=== PATIENT | female | born 1975 | race Caucasian/White ===

== ENCOUNTER → 2018-06-03 | Outpatient (CLI) | payer OTHER ==
--- NOTE | 2018-06-04 09:41 | MM ---
Reason for exam: screening (asymptomatic). History: Took hormonal contraceptives for 1 month beginning at age 24. Physical Findings: Nurse did not find any significant physical abnormalities on exam. MG 3D Screening Mammo W/Cad Bilateral CC and MLO view(s) were taken. The breast tissue is heterogeneously dense. This may lower the sensitivity of mammography. No suspicious abnormality. These results were verbally communicated with the patient and result sheet given to the patient on 06/03/18. ASSESSMENT: Negative, BI-RAD 1 RECOMMENDATION: Routine screening mammogram of both breasts in 1 year.
== END | disposition home or self-care (01) ==
LOC: RADMAMWWP 15:26
PROVIDERS: ATTEND Obstetrics & Gynecology
DX: Z12.31 Encounter for screening mammogram for malignant neoplasm of breast (principal)
CPT/HCPCS: 77063; 77067

== ENCOUNTER → 2018-12-04 | Outpatient (CLI) | payer OTHER ==
--- NOTE | 2018-12-04 09:07 | CT ---
EXAMINATION TYPE: CT angio chest DATE OF EXAM: 12/04/2018 COMPARISON: CT angiogram chest dated 05/27/2014 HISTORY: Bicuspid valve, abn ECHO. Thoracic aortic aneurysm. CT DLP: 639 mGycm. Automated Exposure Control for Dose Reduction was Utilized. CONTRAST: CTA scan of the thorax is performed without and with IV Contrast, patient injected with 100 mL of Iso lisa 370, pulmonary embolism protocol. MIP Images are created on CT scanner and reviewed. FINDINGS: LUNGS: The lungs are grossly clear without focal consolidation. There is a 2 mm solid pulmonary nodul e in the superior segment of the right lower lobe on series 10 image 29. There is no pleural effusion or pneumothorax seen. The tracheobronchial tree is patent. MEDIASTINUM: The unenhanced images demonstrate no evidence of intramural hematoma. The aortic root is upper limits of normal size just above the sinotubular junction measuring 3.9 cm (abnormal at 4.0 cm or greater is present. The ascending thoracic aorta is mildly aneurysmal measuring 4.2 cm on coronal series 11 image 11. This is increased in size from the prior of 05/27/2014 where this measured approx imately 3.8 cm (within normal limits). The descending thoracic aorta is within normal limits measurin g 2.2 cm as is the aortic arch. There is a conventional three-vessel branch pattern of the aortic arc h. There is no evidence of central pulmonary embolism or pulmonary arterial enlargement. There are n o greater than 1 cm hilar or mediastinal lymph nodes. No cardiomegaly or pericardial effusion is se en. OTHER: No cholelithiasis or nephrolithiasis in the visualized portions of the kidneys are seen on the unenhanced images. IMPRESSION: 1. Mild aneurysmal dilatation of the ascending thoracic aorta measuring 4.2 cm, increased from the pr ior of 2013 where caliber was normal of the ascending thoracic aorta. 2. There is a 2 mm pulmonary nodule within the right lower lobe for which follow-up CT thorax is chad mmended in 12 months to determine stability.
== END | disposition home or self-care (01) ==
LOC: RADCTMAIN 07:32
PROVIDERS: ATTEND Family Medicine
DX: I71.2 Thoracic aortic aneurysm, without rupture (principal); R91.1 Solitary pulmonary nodule
CPT/HCPCS: 71275; Q9967

== ENCOUNTER → 2019-12-25 | Outpatient (CLI) | payer OTHER ==
--- NOTE | 2019-12-25 11:07 | CT ---
EXAMINATION TYPE: CT chest wo con DATE OF EXAM: 12/25/2019 COMPARISON: 12/04/2018 HISTORY: Solitary pulmonary nodule CT DLP: 237.4 mGycm, Automated exposure control for dose reduction was used. CONTRAST: Performed injected with 0 mL of Isovue 300. TECHNIQUE: Axial images were obtained at 5 mm thick sections. Reconstructed images are reviewed on t computer in the coronal plane. FINDINGS: Portion of the thyroid visualized is normal. No suspicious lung nodules or focal infiltrates are present. There is a 0.2 cm stable nodule within t he periphery of the right midlung. Series 4 image 30. Confirmation of stability over the course of 2 years is recommended. A follow up study in 12 months is recommended. No enlarged mediastinal or hilar adenopathy is evident. The ascending aorta diameter at the level o f the main pulmonary artery is 4.5 cm. This has increased from 4.2 cm in 2019. The main pulmonary ar minoo diameter at the bifurcation is 2.[address] sections are obtained through the upper abdomen. Abdomen is essentially unremarkable. IMPRESSIONS: 1. Ascending thoracic aortic aneurysm measuring 4.5 cm increasing from 4.2 cm in 2019. 2. Stable 2 mm nodule periphery right midlung. Follow-up exam to evaluate this finding in 12 months i s recommended.
== END | disposition home or self-care (01) ==
LOC: RADCTMAIN 07:26
PROVIDERS: ATTEND Family Medicine
DX: I71.2 Thoracic aortic aneurysm, without rupture (principal); R91.1 Solitary pulmonary nodule
CPT/HCPCS: 71250

== ENCOUNTER → 2020-12-29 | Outpatient (CLI) | payer OTHER ==
--- NOTE | 2020-12-29 09:16 | CT ---
EXAMINATION TYPE: CT chest wo con DATE OF EXAM: 12/29/2020 COMPARISON: 12/25/2019 HISTORY: Solitary pulmonary nodule Unenhanced CT of the chest was performed with lung and mediastinal window settings submitted. The la ck of contrast limits evaluation of the vascular, mediastinal and parenchymal structures including th e upper abdomen. LUNGS: The lungs are clear and free of infiltrate. No atelectasis. Stable 3 mm pulmonary nodule right middle lobe image 32. No additional pulmonary nodules identified. No pleural effusion. No CT eviden ce of interstitial lung disease. MEDIASTINUM/DAVE: Stable ascending thoracic aortic aneurysm measuring 4.4 cm AP dimension versus 4.5 cm previously. The heart is not enlarged. No evidence for mediastinal mass. No lymph nodes greater than 1cm. UPPER ABDOMEN: No significant abnormality is seen. OTHER: No significant other abnormality. IMPRESSION: 1. Stable 3 mm pulmonary nodule. Stability over a two-year timeframe should be documented radiograph ically. 2. Stable ascending thoracic aortic aneurysm.
== END | disposition home or self-care (01) ==
LOC: RADCTMAIN 08:44
PROVIDERS: ATTEND Family Medicine
DX: R91.1 Solitary pulmonary nodule (principal); I71.2 Thoracic aortic aneurysm, without rupture
CPT/HCPCS: 71250

== ENCOUNTER → 2021-02-09 | Outpatient (CLI) | payer OTHER ==
--- NOTE | 2021-02-13 10:15 | MM ---
Reason for exam: screening (asymptomatic). Last mammogram was performed 2 years and 8 months ago. History: Took hormonal contraceptives for 1 month beginning at age 24. Physical Findings: A clinical breast exam by your physician is recommended on an annual basis and results should be correlated with mammographic findings. MG 3D Screening Mammo W/Cad Bilateral CC and MLO view(s) were taken. Prior study comparison: June 03, 2018, bilateral MG 3d screening mammo w/cad. The breast tissue is heterogeneously dense. This may lower the sensitivity of mammography. No significant changes when compared with prior studies. ASSESSMENT: Benign, BI-RAD 2 RECOMMENDATION: Routine screening mammogram of both breasts in 1 year.
== END | disposition home or self-care (01) ==
LOC: RADMAMWWP 08:04
PROVIDERS: ATTEND Family Medicine
DX: Z12.31 Encounter for screening mammogram for malignant neoplasm of breast (principal)
CPT/HCPCS: 77063; 77067

== ENCOUNTER → 2022-09-03 | Outpatient (CLI) | payer OTHER ==
--- NOTE | 2022-09-04 09:23 | MM ---
Reason for Exam: Screening (asymptomatic). Last mammogram was performed 1 year(s) and 6 month(s) ago. Patient History: Menarche at age 14. First Full-Term at age 22. Patient has history of breast feeding. Hormonal Contraceptives for 1 month from age 24 until age 24. Last menstrual period: 08/28/2022 Risk Values: Rehana 5 year model risk: 0.7%. NCI Lifetime model risk: 8.7%. Prior Study Comparison: 06/03/2018 Bilateral Screening Mammogram, [facility]. 02/09/2021 Bilateral Screening Mammogram, [facility]. Tissue Density: The breast tissue is heterogeneously dense. This may lower the sensitivity of mammography. Findings: Analyzed By CAD. There is no suspicious group of microcalcifications or new suspicious mass in either breast. No significant change from prior exams. Overall Assessment: Negative, BI-RAD 1 Management: Screening Mammogram of both breasts in 1 year. A clinical breast exam by your physician is recommended on an annual basis and results should be correlated with mammographic findings. Electronically signed and approved by: Nii Sherman D.O.
== END | disposition home or self-care (01) ==
LOC: RADMAMWWP 08:58
PROVIDERS: ATTEND Family Medicine
DX: Z12.31 Encounter for screening mammogram for malignant neoplasm of breast (principal)
CPT/HCPCS: 77063; 77067

== ENCOUNTER → 2022-11-01 | Outpatient (CLI) | payer OTHER ==
--- NOTE | 2022-11-01 11:19 | CT ---
EXAMINATION TYPE: CT angio chest DATE OF EXAM: 11/01/2022 COMPARISON: 12/29/2020 HISTORY: Ascending aortic aneurysm CT DLP: 397.2 mGycm CONTRAST: CTA thoracic aorta with 3-D reconstruction is performed and without and with IV Contrast, patient inj ected with 100 mL of Isovue 370. Contrast CTA of the thoracic aorta was performed from the lung apex through the upper abdomen. 3D re construction imaging obtained at a separate workstation. CT Chest: THORACIC AORTA: Essentially stable ascending thoracic aortic aneurysm at 4.2 cm AP dimension versus 4 .2 cm previously. Mild atheromatous changes seen. There is no evidence for dissection or periaortic collection. LUNGS: The lungs are clear and free of infiltrate or atelectasis. No pulmonary nodule or mass is det ected. Previously described pulmonary nodule is poorly visualized. No pleural effusion or CT evidence of interstitial lung disease. MEDIASTINUM: No evidence for mediastinal hematoma. The heart is not enlarged. No evidence for med iastinal mass or adenopathy. HILAR STRUCTURES: No evidence for mass. No hilar adenopathy is appreciated. OTHER: No significant abnormality. IMPRESSION- Stable ascending thoracic aortic aneurysm.
== END | disposition home or self-care (01) ==
LOC: RADCTMAIN 08:51
PROVIDERS: ATTEND Internal Medicine Interventional Cardiology
DX: I71.21 Aneurysm of the ascending aorta, without rupture (principal)
CPT/HCPCS: 71275; Q9967

== ENCOUNTER → 2023-11-20 | Outpatient (CLI) | payer OTHER ==
--- NOTE | 2023-11-28 11:50 | CT ---
EXAMINATION TYPE: CT angio chest CT DLP: 667.9 mGycm, Automated exposure control for dose reduction was used. DATE OF EXAM: 11/20/2023 3:59 PM COMPARISON: 11/01/2022 and before CLINICAL INDICATION:Female, 47 years old with history of I71.20 THORACIC AORTIC ANEURYSM, WITHOUT RUP TURE,; bicuspid aortic valve, r/o aneurysm TECHNIQUE/CONTRAST: CTA scan of the thorax is performed without and with IV Contrast, patient injected with 100 mL of Iso lisa 370, MIP images are created and reviewed these are created on a separate workstation.. FINDINGS: There is adequate contrast bolus and timing. Examination is slightly degraded by motion artifact. THORACIC AORTA: No evidence of intramural hematoma. There is some limitation by motion. Allowing for this, the [facility] ascending aortic aneurysm appears stable in size, 4.2 cm. No evidence of dissection or significant narrowing of the 3 branch vessels from the arch. Aorta tapers along the arch and the descending aort ic diameter is 2 cm. At the level of the hiatus, diameter is 1.9 cm. Upper abdominal aorta appears wi thin normal limits, diameter is 1.6 cm at the level of the renal arteries. The proximal celiac, super ior mesenteric, and bilateral renal arteries are patent. There is an accessory right renal artery com ing off anteriorly, also patent. OTHER VASCULATURE: Heart size appears within normal limits with preserved enhancement of the chambers. Bicuspid aortic v alve can be faintly appreciated. No significant coronary arterial calcifications or pericardial fluid . Pulmonary arteries show grossly normal enhancement in the scope of the exam. The pulmonary trunk is within normal limits at 2 cm diameter. LUNGS: Lungs show no evidence of infiltrate or consolidation. No pleural effusion or pneumothorax. Tiny pulm onary nodules in the superior segment right lower lobe near the oblique fissure image 39 and in the a nterior right middle lobe image 48, remain stable. No new or enlarging pulmonary nodule or mass is ot herwise detected. No pleural effusion or pneumothorax. MEDIASTINUM: No evidence of mediastinal hematoma, mass or adenopathy. Central airways are patent. T here is a small gas-filled structure posterior to the right of the trachea at the level of the thorac ic inlet, suggestive of tracheal diverticulum.. Visualized inferior neck is unremarkable. HILAR STRUCTURES: No evidence for mass. No hilar adenopathy is appreciated. OTHER: No significant abnormality. Osseous structures are intact. Limited views of the upper abdomen show no acute or concerning abnormality. No mass of the visualized adrenals. IMPRESSION: Stable 4.2 cm fusiform ascending thoracic aortic aneurysm.
== END | disposition home or self-care (01) ==
LOC: RADCTMAIN 15:12
PROVIDERS: ATTEND Internal Medicine Interventional Cardiology
DX: I71.21 Aneurysm of the ascending aorta, without rupture (principal)
CPT/HCPCS: 71275; Q9967

== ENCOUNTER 2024-03-13 08:17 | Day surgery (SDC) | payer OTHER ==
--- NOTE | 2024-03-13 07:53 | P.HPOB ---
History of Present Illness H&P Date: 03/13/24 Chief Complaint: Menometrorrhagia The patient is a 48-year-old 7 para 3-0-4-3 who presents to the office for annual examination with complaints of significantly heavy and increasing cycles. They are fairly regular every 28 to 30 days but last for 10 days at a time and are significantly heavy with clots. She additionally reports intermenstrual spotting. She has a tubal ligation in place for contraception. She is requesting definitive treatment and declining hormonal manipulation and is requesting endometrial ablation. She declined office biopsy in favor performing dilation and curettage prior to the ablation. Obstetrical history: 7 para 3-0-4-3 with 3 term deliveries and 4 early miscarriages 2 of which required D&C. Method of contraception is tubal ligation. Gynecologic history: Unremarkable with no history of any infections to include STDs. Review of Systems Review of systems is confined to history of present illness. Past Medical History Past Medical History: Thyroid Disorder Additional Past Medical History / Comment(s): bicuspid aortic valve History of Any Multi-Drug Resistant Organisms: None Reported Past Surgical History: Tubal Ligation Additional Past Surgical History / Comment(s): d and c X2 Past Anesthesia/Blood Transfusion Reactions: No Reported Reaction Smoking Status: Former smoker Medications and Allergies Home Medications Medication Instructions Recorded Confirmed Type Levothyroxine Sodium [Synthroid] 125 mcg PO DAILY 02/10/15 03/11/24 History Allergies Allergy/AdvReac Type Severity Reaction Status Date / Time sulfamethoxazole Allergy Itching Verified 03/11/24 12:01 [From Bactrim] trimethoprim [From Bactrim] Allergy Itching Verified 03/11/24 12:01 Exam In general, this is a well-developed, well-nourished white female in no acute distress. Her heart has a regular rhythm and rate without murmur. Her lungs are clear to auscultation bilaterally in all yu. Her abdomen is nondistended, has normal active bowel sounds, soft, nontender, and without any palpable masses, hepatosplenomegaly, or hernias. Her extremities are without any cyanosis, clubbing, or edema and are nontender to palpation bilaterally. Pelvic examination demonstrates normal external genitalia and BUS with normal vaginal mucosa and cervix. There is no cervical motion tenderness. The uterus is approximately 4 to 5 weeks in size, anteverted, mobile, nontender, normal in shape. The adnexa are normal and nontender without mass bilaterally. Assessment and Plan (1) Menometrorrhagia Status: Acute Code(s): N92.1 - EXCESSIVE AND FREQUENT MENSTRUATION WITH IRREGULAR CYCLE SNOMED Code(s): 752745408 Plan: Options for treatment have been thoroughly discussed and the patient has requested diagnostic hysteroscopy with NovaSure endometrial ablation as the symptoms have become significantly interruptive of her lifestyle. As she has declined office endometrial biopsy in advance, dilation and curettage for endometrial sampling will be performed prior to the procedure. The risks and complications of all the procedures have been discussed including risk for bleeding, bleeding requiring transfusion, infection, injury to local structures to specifically include uterine perforation, Asherman syndrome, and hematometra. She has understood all of this and has agreed to proceed. You are scheduled for the above procedure this morning, 03/13/2024.
[~2024-03-13 08:17] MED LIST: LIDOCAINE 1% (10MG/ML) FOR IV START INTRADERMA PRN; MIDAZOLAM 2 MG/2 ML VIAL IV PRN; Pre Op ABX Message 1 EACH MISC MISCELLANE ONE
[2024-03-13] MEDS: ONDANSETRON 4 MG/2 ML VIAL IVP ONE (09:27)
[2024-03-13] MEDS: LACTATED RINGERS 1,000 ML IV SCH (09:27)
[2024-03-13] MEDS: DEXAMETHASONE SOD PHOSPHATE 4 MG/ML 1 ML VIAL IV ONE (09:27)
[2024-03-13 09:41] VITALS: RESP 16
[2024-03-13] MEDS ORDERED: KETOROLAC 15 MG/ML 1 ML VIAL ONE (09:45)
[2024-03-13] MEDS ORDERED: fentaNYL (PF) 50 MCG/ML 2 ML AMP ONE (09:45)
[2024-03-13] MEDS ORDERED: LIDOCAINE 1% INJ 10MG/ML (20 ML MDV) ONE (09:45)
[2024-03-13] MEDS ORDERED: MIDAZOLAM 2 MG/2 ML VIAL ONE (09:45)
[2024-03-13] MEDS ORDERED: PROPOFOL 10 MG/ML 20 ML VIAL IV ONE (09:45)
[2024-03-13] MEDS ORDERED: METOCLOPRAMIDE 5 MG/ML 2 ML VIAL IVP PRN (10:20)
[2024-03-13] MEDS ORDERED: SIMETHICONE 80 MG CHEWABLE PO PRN (10:20)
[2024-03-13] MEDS ORDERED: diphenhydrAMINE 50 MG/ML 1 ML VIAL IVP PRN (10:20)
[2024-03-13] MEDS ORDERED: IBUPROFEN 600 MG TAB PO PRN (10:20)
[2024-03-13] MEDS ORDERED: KETOROLAC 15 MG/ML 1 ML VIAL IVP PRN (10:20)
[2024-03-13] MEDS ORDERED: Acetaminophen-Codeine 300-30mg TAB PO PRN ×2 (10:20)
[2024-03-13] MEDS ORDERED: ONDANSETRON 4 MG/2 ML VIAL IVP PRN (10:20)
--- NOTE | 2024-03-13 10:28 | P.OP ---
Date of Procedure: 03/13/24 Preoperative Diagnosis: #1. Menometrorrhagia Postoperative Diagnosis: Same Procedure(s) Performed: #1. Diagnostic hysteroscopy #2. Dilation and curettage #3. NovaSure endometrial ablation Anesthesia: other (General by LMA) Surgeon: Sarthak Nicole Estimated Blood Loss (ml): 5 IV fluids (ml): 400 Urine output (ml): 50 Pathology: other (Endometrial curettings) Condition: stable Disposition: PACU Operative Findings: Preoperative pelvic examination demonstrated a 4 to 5-week anteverted mobile normal shaped uterus with normal adnexa bilaterally. Intraoperatively, the uterus sounded to 9 cm while the cervix was approximately 4 cm. Using the hysteroscope, there was a moderate amount of shaggy endometrial tissue throughout the cavity. The bilateral tubal ostia were seen. There was no evidence of pathology. There was a moderate amount of tissue removed onto the Telfa in the vagina with curettage. The typical gritty texture was encountered throughout. The settings for the NovaSure to over a length of 5.0 cm, a width of 3.3 cm for a total power of 91 W. After total run time of 96 seconds, the base unit read "procedure complete." The postprocedural hysteroscopic result appeared to be excellent. The patient is a moderately poor candidate for vaginal hysterectomy should it become necessary and would benefit more likely from a da Alfredo approach. Description of Procedure: The patient was prepped and draped in usual fashion after general anesthesia was administered by the anesthesiologist. A weighted speculum was placed and the bladder drained of approximately 50 cc of clear joel urine. The anterior lip of the cervix was grasped with a single-tooth tenaculum and the uterus and cervix sounded to 9 cm and 4 cm respectively. Serial dilation was carried out to admit the diagnostic hysteroscope which was placed into the endometrial cavity and the cavity distended with normal saline. The findings are as noted above with the bilateral tubal ostia seen and a moderate amount of shaggy tissue noted throughout the endometrial cavity but no evidence of polyps or fibroids or other pathology. After adequate hysteroscopy had been carried out, the scope was set aside and a medium sharp curette inserted into the endometrial cavity. The endometrial cavity was curetted sharply onto a Telfa placed in the vagina circumferentially and thoroughly with a moderate amount of tissue being produced and the typical gritty texture encountered throughout the cavity. The Telfa was passed for pathological diagnoses with the endometrial curettings. The NovaSure tool was placed into the endometrial cavity, opened, and seated well. The settings are as noted above with a length of 5.0 cm, a width of 3.3 cm for a total power of 91 W. The cavity check was attempted and passed without di fficulty and the tool was enabled. The run was started and, after a total run time of 96 seconds, the base unit read "procedure complete." The 2 was closed, removed, and discarded. The diagnostic scope was replaced within the endometrial cavity and again distended with normal saline. The postprocedural result appeared to be excellent. All instrumentation was removed. There was some ongoing bleeding from one of the tenaculum sites which was made hemostatic with pressure. At the close of the procedure, there was no ongoing bleeding from either the cervix or the tenaculum sites. The patient is a relatively poor candidate for vaginal hysterectomy with relatively minimal cervical/uterine descensus. Estimated blood loss for the case was 5 mL or less. There were no complications. All sponge, instrument, and needle counts were correct. The patient tolerated the procedure well and proceeded to the recovery room in stable condition.
[2024-03-13] MEDS ORDERED: LACTATED RINGERS 1,000 ML IV SCH (10:30)
[2024-03-13] MEDS: HYDROmorphone 0.5 MG/0.5 ML SYRINGE IVP PRN (10:37)
[2024-03-13 11:08] VITALS: TEMP 97.2
[2024-03-13 11:52] VITALS: BP 125/86; PULSE 79
[2024-03-14] MEDS ORDERED: ACETAMINOPHEN TAB 325 MG TAB PO PRN (10:21)
== END 2024-03-13 11:55 | disposition home or self-care (01) ==
LOC: OR 08:17
PROVIDERS: ATTEND Obstetrics & Gynecology
DX: N92.1 Excessive and frequent menstruation with irregular cycle (principal); E07.9 Disorder of thyroid, unspecified; Z98.51 Tubal ligation status; Z87.891 Personal history of nicotine dependence; Z79.890 Hormone replacement therapy; Z88.2 Allergy status to sulfonamides; Z88.1 Allergy status to other antibiotic agents; Z79.899 Other long term (current) drug therapy; Z98.890 Other specified postprocedural states
CPT/HCPCS: 88305; 58563; J2250; J1100; J2405; J2001; J3010; J1885; J2704; J1170

== ENCOUNTER → 2024-09-11 | Outpatient (CLI) | payer OTHER ==
--- NOTE | 2024-09-14 19:45 | MM ---
Reason for Exam: Screening (asymptomatic). Last mammogram was performed 2 year(s) and 1 month(s) ago. Patient History: Menarche at age 14. First Full-Term at age 22. Patient has history of breast feeding. Hormonal Contraceptives for 1 month from age 24 until age 24. Risk Values: Reahna 5 year model risk: 0.8%. NCI Lifetime model risk: 8.5%. Prior Study Comparison: 06/03/2018 Bilateral Screening Mammogram, [facility]. 02/09/2021 Bilateral Screening Mammogram, [facility]. 09/03/2022 Bilateral MG 3D screening mammo w/cad, [facility]. Tissue Density: The breasts are heterogeneously dense, which may obscure small masses. Findings: Analyzed By CAD. The pattern is symmetrical. No significant interval change evident No suspicious groups of microcalcifications, spiculated or lobular masses, architectural distortion or other secondary signs of malignancy are mammographically apparent. Overall Assessment: Benign, BI-RAD 2 Management: Screening Mammogram of both breasts in 1 year. A negative mammogram report should not preclude additional follow up of suspicious palpable abnormalities. Patient should continue monthly self breast exam. A clinical breast exam by your physician is recommended on an annual basis and results should be correlated with mammographic findings. Note on Rehana scores and lifetime risk: 1. A Rehana score greater than 3% is considered moderate risk. If this is the case, consider specialist referral to assess eligibility for a risk reducing agent. 2. If overall lifetime risk for the development of breast cancer is 20% or higher, the patient may qualify for future screening with alternating mammogram and breast MRI. [facility], , 09/14/2024 7:41 PM. Electronically signed and approved by: Mike Red D.O. Radiologis
== END | disposition home or self-care (01) ==
LOC: RADMAMWWP 15:46
PROVIDERS: ATTEND Family Medicine
DX: Z12.31 Encounter for screening mammogram for malignant neoplasm of breast (principal); R92.333 Mammographic heterogeneous density, bilateral breasts
CPT/HCPCS: 77063; 77067